=== PATIENT | female | born 1935 | race African-American/Black ===

== ENCOUNTER 2018-11-13 12:39 | Inpatient (IN) | payer MEDICARE, MEDICAID ==
[~2018-11-13] VITALS: Ht 152.4 cm; Wt 54.9 kg
[2018-11-13] MEDS ORDERED: SODIUM CHLORIDE 0.9% 1,000 ML IV ONE (13:00)
[2018-11-13 13:15] LABS: HEMATOCRIT. 27.9 % (36.0-48.0); HEMOGLOBIN. 8.8 g/dL (12.0-16.0); MEAN CORPUSCULAR HEMOGLOBIN 35.3 pg (28.0-32.0); MEAN CORPUSCULAR VOLUME 111.4 fL (81.0-99.0); MEAN PLATELET VOLUME 9.6 fl (7.4-10.4); PLATELET 96 x1000/uL (130-400); RED CELL DISTRIBUTION WIDTH 20.2 % (11.6-14.6)
[2018-11-13 13:21] LABS: CHLORIDE 100 mEq/L (98-107)
[2018-11-13 13:23] LABS: INR 1.3
[2018-11-13 13:38] LABS: PLATELET ESTIMATE DECREASED
[2018-11-13] MEDS ORDERED: ONDANSETRON HCL 4MG/2ML INJ IV PRN (16:30)
[2018-11-13] MEDS ORDERED: ACETAMINOPHEN 325MG TABLET PO PRN (16:30)
[2018-11-13] MEDS ORDERED: LOSA25TA3 MT (22:59)
[2018-11-13] MEDS ORDERED: ONDA4SOL PO (22:59)
[2018-11-13] MEDS ORDERED: DONE10TA43 PO (22:59)
[2018-11-13] MEDS ORDERED: HYDR-4009 PO (22:59)
[2018-11-13] MEDS ORDERED: CARV3.1242 PO (22:59)
[2018-11-13] MEDS ORDERED: ALLO100T PO (22:59)
[2018-11-13] MEDS ORDERED: FERR325T6 PO (22:59)
[2018-11-13] MEDS ORDERED: CLOP75TA33 MT (22:59)
[2018-11-13] MEDS ORDERED: ASPI-1393 MT (22:59)
[2018-11-13] MEDS ORDERED: LEVO50TA8 MT (22:59)
[2018-11-13] MEDS ORDERED: ISOS30TA12 PO (22:59)
[2018-11-13 23:00] VITALS: BP 97/55
[2018-11-14] VITALS: BP 98/56
[2018-11-14 06:41] LABS: BASOPHILS % 0.7 % (0.0-2.0); HEMATOCRIT. 28.9 % (36.0-48.0); HEMOGLOBIN. 9.1 g/dL (12.0-16.0); LYMPHOCYTES % 23.2 % (20.0-50.0); MEAN CORPUSCULAR HEMOGLOBIN 34.8 pg (28.0-32.0); MEAN CORPUSCULAR VOLUME 110.7 fL (81.0-99.0); MEAN PLATELET VOLUME 10.5 fl (7.4-10.4); MONOCYTES % 11.6 % (2.0-8.0); NEUTROPHILS % 61.5 % (40.0-76.0); PLATELET 111 x1000/uL (130-400); RED BLOOD CELL COUNT 2.61 mill/uL (4.2-5.4); RED CELL DISTRIBUTION WIDTH 20.6 % (11.6-14.6)
[2018-11-14 08:00] VITALS: BP 84/34
[2018-11-14] MEDS ORDERED: SODIUM CHLORIDE 0.45% 1,000 ML IV SCH (09:15)
[2018-11-14] MEDS: MIDODRINE HCL 2.5MG TABLET PO SCH ×3 (09:25→17:00)
[2018-11-14 10:25] VITALS: BP 116/58
[2018-11-14 12:00] VITALS: BP 116/89
[2018-11-14 16:00] VITALS: BP 98/42
[2018-11-14 20:31] VITALS: BP 103/51
[2018-11-14] MEDS ORDERED: EPOETIN ALFA 10000UNITS/ML VIAL SUBCUT SCH (21:00)
[2018-11-14] MEDS: HYDROCODONE/ACETAMINOPHEN 5/325MG TABLET PO PRN (23:53)
[2018-11-15] VITALS: BP 104/49
[2018-11-15 04:00] VITALS: BP 103/50
[2018-11-15 06:20] LABS: BASOPHILS % 0.8 % (0.0-2.0); EOSINOPHILS % 2.2 % (0.0-5.0); HEMATOCRIT. 29.4 % (36.0-48.0); HEMOGLOBIN. 9.4 g/dL (12.0-16.0); LYMPHOCYTES % 35.1 % (20.0-50.0); MEAN CORPUSCULAR HEMOGLOBIN 35.4 pg (28.0-32.0); MEAN CORPUSCULAR VOLUME 110.2 fL (81.0-99.0); MEAN PLATELET VOLUME 9.9 fl (7.4-10.4); MONOCYTES % 12.4 % (2.0-8.0); NEUTROPHILS % 49.5 % (40.0-76.0); PLATELET 117 x1000/uL (130-400); RED BLOOD CELL COUNT 2.67 mill/uL (4.2-5.4); RED CELL DISTRIBUTION WIDTH 20.2 % (11.6-14.6)
[2018-11-15 06:28] LABS: PHOSPHORUS 1.6 mg/dL (2.5-4.9)
[2018-11-15 06:33] LABS: T4 FREE 1.1 ng/dL (0.76-1.46)
[2018-11-15] MEDS ORDERED: LIDOCAINE HCL 1% 20ML VIAL (Pyxis) INJ ONE (07:54)
[2018-11-15 08:05] VITALS: BP 116/93
[2018-11-15 12:30] VITALS: BP 78/55
[2018-11-15] MEDS: MIDODRINE HCL 2.5MG TABLET PO SCH ×3 (12:46→18:26)
[2018-11-15 16:31] VITALS: BP 104/50
[2018-11-15] MEDS: HYDROCODONE/ACETAMINOPHEN 5/325MG TABLET PO PRN (18:25)
[2018-11-15 20:00] VITALS: BP 91/32
[2018-11-16] VITALS: BP 91/33
[2018-11-16] MEDS: HYDROCODONE/ACETAMINOPHEN 5/325MG TABLET PO PRN ×2 (02:04→16:09)
[2018-11-16 04:00] VITALS: BP 105/75
[2018-11-16 06:44] LABS: HEMATOCRIT. 31.5 % (36.0-48.0); MEAN CORPUSCULAR HEMOGLOBIN 35.3 pg (28.0-32.0); MEAN CORPUSCULAR VOLUME 111.4 fL (81.0-99.0); MEAN PLATELET VOLUME 10.7 fl (7.4-10.4); PLATELET 131 x1000/uL (130-400); RED BLOOD CELL COUNT 2.83 mill/uL (4.2-5.4); RED CELL DISTRIBUTION WIDTH 21.2 % (11.6-14.6)
[2018-11-16 08:00] VITALS: BP 114/34
[2018-11-16] MEDS: MIDODRINE HCL 2.5MG TABLET PO SCH ×3 (09:00→16:09)
[2018-11-16 12:00] VITALS: BP 104/57
[2018-11-16] MEDS ORDERED: MIDO2.5T PO (15:55)
[2018-11-16 15:59] LABS: PLATELET ESTIMATE NORMAL
[2018-11-16 16:00] VITALS: BP 107/54
[2018-11-16 16:50] VITALS: BP 107/54
== END 2018-11-16 19:01 | disposition home or self-care (01) | DRG 981 ==
LOC: ER 12:39 → 6WST 12:52 → EDBEDREQ 15:19 → EDBEDREQSVC 15:19 → ENRESERV 20:46
PROVIDERS: ADMIT Internal Medicine; ATTEND Internal Medicine
PROC: 0QBQ0ZZ Excision of Right Toe Phalanx, Open Approach (ICD-10-PCS; principal; 2018-11-14)
PROC: 0QBQ0ZX Excision of Right Toe Phalanx, Open Approach, Diagnostic (ICD-10-PCS; 2018-11-14)
PROC: 5A1D70Z Performance of Urinary Filtration, Intermittent, Less than 6 Hours Per Day (ICD-10-PCS; 2018-11-15)
DX: I13.2 Hypertensive heart and chronic kidney disease with heart failure and with stage 5 chronic kidney disease, or end stage renal disease (principal); E43 Unspecified severe protein-calorie malnutrition; N18.6 End stage renal disease; L89.153 Pressure ulcer of sacral region, stage 3; I50.43 Acute on chronic combined systolic (congestive) and diastolic (congestive) heart failure; M86.8X7 Other osteomyelitis, ankle and foot; I95.89 Other hypotension; L97.509 Non-pressure chronic ulcer of other part of unspecified foot with unspecified severity; I70.235 Atherosclerosis of native arteries of right leg with ulceration of other part of foot; D69.6 Thrombocytopenia, unspecified; D72.821 Monocytosis (symptomatic); E87.6 Hypokalemia; F03.90 Unspecified dementia, unspecified severity, without behavioral disturbance, psychotic disturbance, mood disturbance, and anxiety; N89.8 Other specified noninflammatory disorders of vagina; E11.51 Type 2 diabetes mellitus with diabetic peripheral angiopathy without gangrene; E86.9 Volume depletion, unspecified; D63.1 Anemia in chronic kidney disease; E11.22 Type 2 diabetes mellitus with diabetic chronic kidney disease; I25.10 Atherosclerotic heart disease of native coronary artery without angina pectoris; R26.9 Unspecified abnormalities of gait and mobility; I27.20 Pulmonary hypertension, unspecified; E11.69 Type 2 diabetes mellitus with other specified complication; I48.91 Unspecified atrial fibrillation; Z95.810 Presence of automatic (implantable) cardiac defibrillator; Z90.710 Acquired absence of both cervix and uterus; Z93.3 Colostomy status; Z85.42 Personal history of malignant neoplasm of other parts of uterus; Z88.0 Allergy status to penicillin; Z79.4 Long term (current) use of insulin; Z79.84 Long term (current) use of oral hypoglycemic drugs; Z99.2 Dependence on renal dialysis; Z68.23 Body mass index [BMI] 23.0-23.9, adult
CPT/HCPCS: 36415; 71045; 73630; 74176; 80048; 80061; 82962; 83036; 83735; 84100; 84134; 84145; 84439; 84443; 84481; 85651; 86140; 87070; 87075; 93005; 93306; 93880; 93923; 93970; 96360; 96361; 97162; 99285; A6261; C1893; J0885; J2405; J3490; J7030; J7050